=== PATIENT | male | born 1960 | race Asian ===

== ENCOUNTER 2016-10-11 21:14 | Emergency (ER) | payer OTHER ==
[~2016-10-11] VITALS: Ht 162.6 cm; Wt 72.7 kg
[~2016-10-11 21:14] MED LIST: AMLO-512 PO; ASPI81 PO; LISI-661 PO
[2016-10-12 02:14] VITALS: BP 121/82
== END 2016-10-12 03:45 | disposition home or self-care (01) ==
LOC: EMS 21:15
DX: S76.012A Strain of muscle, fascia and tendon of left hip, initial encounter (principal); I10 Essential (primary) hypertension; F17.210 Nicotine dependence, cigarettes, uncomplicated; Z79.82 Long term (current) use of aspirin; X58.XXXA Exposure to other specified factors, initial encounter; Y93.89 Activity, other specified; Y92.89 Other specified places as the place of occurrence of the external cause; Y99.8 Other external cause status
CPT/HCPCS: 99284

== ENCOUNTER 2024-06-09 12:10 | Emergency (ER) | payer OTHER ==
[~2024-06-09] VITALS: Ht 162.6 cm; Wt 45.9 kg
[~2024-06-09 12:10] MED LIST changes: +AMLO-258 PO; -AMLO-512 PO; +ASPI-1450 PO; -ASPI81 PO; -LISI-661 PO; +LISI-893 PO
[2024-06-09 12:23] VITALS: BP 118/83; PULSE 90; RESP 16; TEMP 98.4; O2SAT 100
[2024-06-09] MEDS: PERTUSS(ACELL),DIPH,TET/PF 0.5 ML SYRINGE [ADULT] IM. ONE (15:30)
== END 2024-06-09 15:35 | disposition home or self-care (01) ==
LOC: EMS 12:10
DX: S02.2XXA Fracture of nasal bones, initial encounter for closed fracture (principal); S00.11XA Contusion of right eyelid and periocular area, initial encounter; S40.011A Contusion of right shoulder, initial encounter; I10 Essential (primary) hypertension; F17.210 Nicotine dependence, cigarettes, uncomplicated; Z79.899 Other long term (current) drug therapy; W18.40XA Slipping, tripping and stumbling without falling, unspecified, initial encounter; Y93.89 Activity, other specified; Y92.89 Other specified places as the place of occurrence of the external cause; Y99.8 Other external cause status
CPT/HCPCS: 70450; 90471; 90715; 99285

== ENCOUNTER 2025-03-21 20:26 | Emergency (ER) | payer BC, MEDICARE, OTHER ==
[~2025-03-21] VITALS: Ht 165.1 cm; Wt 45.9 kg
[~2025-03-21 20:26] MED LIST changes: -ASPI-1450 PO; -LISI-893 PO
[2025-03-21 20:51] VITALS: TEMP 99.3
[2025-03-21] MEDS: ACETAMINOPHEN 500 MG TABLET PO ONE (21:32)
[2025-03-21] MEDS: KETOROLAC TROMETHAMINE 60 MG/2 ML VIAL IM ONE (21:32)
[2025-03-21 21:49] VITALS: BP 130/86; PULSE 84; RESP 18; O2SAT 99
[2025-03-21 21:50] LABS: PLATELET COUNT (AUTO) 236 K/uL (150-450); RED BLOOD CELL COUNT(AUTO) 5.32 MIL/uL (4.50-5.90); RED CELL DISTRIBUTION WIDTH 14.0 % (11.5-14.5); WHITE BLOOD COUNT (AUTO) 13.6 K/uL (4.5-11.0)
[2025-03-21 21:53] LABS: CALCIUM, TOTAL 9.4 mg/dL (8.8-10.5); CREATININE 0.69 mg/dL (0.60-1.30); GLOMERULAR FILTR. RATE CALC > 60 mL/min (>60); GLUCOSE,RANDOM 105 mg/dL (70-110); SODIUM SERUM 136 mmol/L (136-145); UREA NITROGEN, BLOOD 11 mg/dL (7-18)
[2025-03-21 23:08] LABS: APPEARANCE,URINE CLEAR (CLEAR); GLUCOSE, URINE (UA) NEGATIVE (NEGATIVE); LEUKOCYTE ESTERASE ,URINE NEGATIVE (NEGATIVE); NITRATE,URINE NEGATIVE (NEGATIVE); OCCULT BLOOD,URINE NEGATIVE (NEGATIVE); SPECIFIC GRAVITIY, URINE 1.013 (1.003-1.030)
[2025-03-21 23:20] LABS: SQUAMOUS EPITHELIAL CELL,UR Rare /LPF (None Seen)
[2025-03-21] MEDS ORDERED: METH-812 PO (23:21)
== END 2025-03-21 23:47 | disposition home or self-care (01) ==
LOC: EMS 20:26
DX: S33.5XXA Sprain of ligaments of lumbar spine, initial encounter (principal); I10 Essential (primary) hypertension; F17.210 Nicotine dependence, cigarettes, uncomplicated; Z79.899 Other long term (current) drug therapy; X58.XXXA Exposure to other specified factors, initial encounter; Y93.89 Activity, other specified; Y92.89 Other specified places as the place of occurrence of the external cause; Y99.8 Other external cause status
CPT/HCPCS: 99283; 80048; 81001; 85025; 36415; 96372; J1885